=== PATIENT | male | born 1990 | race Caucasian/White ===

== ENCOUNTER → 2016-08-05 11:33 | Emergency (ER) | payer MEDICAID ==
[2016-08-05 11:34] VITALS: BMI 57.6
[2016-08-05 12:44] VITALS: BP 128/83; PULSE 75; RESP 20; TEMP 97.4; O2SAT 98
== END | disposition left against medical advice (07) ==
LOC: C.ER 11:33
DX: R05 Cough (principal); Z02.9 Encounter for administrative examinations, unspecified